=== PATIENT | female | born 1985 | race Caucasian/White ===

== ENCOUNTER 2017-12-28 20:17 | Emergency (ER) | payer SELFPAY ==
[~2017-12-28] VITALS: Ht 152.4 cm; Wt 86.2 kg
--- NOTE | 2017-12-28 20:54 | NUR ---
PT IN BED TALKING ON CELL. PT IS [id number]. PT ABLE TO MAKE NEEDS KNOWN. NO SIGNS OF DISTRESS AT THIS TIME.
[2017-12-28 21:11] LABS: *URINE HCG, QUAL NEGATIVE (NEGATIVE)
--- NOTE | 2017-12-28 21:37 | NUR ---
PT AT RADIOLOGY FOR CT OF HEAD
--- NOTE | 2017-12-28 21:57 | NUR ---
Patient discharged to home in stable conditon. Written and verbal after care instructions given. Patient verbalizes understanding of instructions. Patient able to ambulate unassisted with steady gait. Patient left with all belongings.
[2017-12-28 21:58] VITALS: BP 112/74
== END 2017-12-28 21:56 | disposition home or self-care (01) ==
LOC: ER 20:20
DX: S06.0X0A Concussion without loss of consciousness, initial encounter (principal); W01.198A Fall on same level from slipping, tripping and stumbling with subsequent striking against other object, initial encounter; Y93.89 Activity, other specified; Y92.89 Other specified places as the place of occurrence of the external cause; Y99.8 Other external cause status
CPT/HCPCS: 70450; 84703; 99285; A4663